=== PATIENT | female | born 1980 | race Caucasian/White ===

== ENCOUNTER 2016-11-21 16:33 | Emergency (ER) | payer MEDICAID ==
[2015-06-25 08:44] VITALS: BMI 43.5
[~2016-11-21 16:33] MED LIST: ULTRAM50 MG PO
== END 2016-11-21 19:11 | disposition home or self-care (01) ==
LOC: D.ER 16:33
DX: G43.909 Migraine, unspecified, not intractable, without status migrainosus (principal); K58.9 Irritable bowel syndrome, unspecified; F17.200 Nicotine dependence, unspecified, uncomplicated

== ENCOUNTER 2016-11-30 09:05 | Emergency (ER) | payer MEDICAID ==
[2015-06-25 08:44] VITALS: BMI 43.5
== END 2016-11-30 10:10 | disposition left against medical advice (07) ==
LOC: D.ER 09:05
DX: R51 Headache (principal); F17.200 Nicotine dependence, unspecified, uncomplicated

== ENCOUNTER 2017-01-01 09:40 | Emergency (ER) | payer MEDICAID ==
[2015-06-25 08:44] VITALS: BMI 43.5
== END 2017-01-01 13:23 | disposition home or self-care (01) ==
LOC: D.ER 09:40
DX: G43.909 Migraine, unspecified, not intractable, without status migrainosus (principal); R11.0 Nausea

== ENCOUNTER 2017-08-18 12:55 | Emergency (ER) | payer MEDICAID ==
[2015-06-25 08:44] VITALS: BMI 43.5
[2017-08-18 14:05] LABS: BASOPHILS 0.2 % (0-2); EOSINOPHILS 1.6 % (0-7); HEMATOCRIT 42.4 % (36.0-48.0); HEMOGLOBIN 13.7 g/dL (12-16); LYMPHOCYTES 21.8 % (15-50); MCH 27.5 pg (26.0-34.0); MCHC 32.3 g/dL (31.0-37.0); MEAN PLATELET VOLUME 11.4 fL (7.4-10.4); MONOCYTES 7.1 % (2-11); NEUTROPHILS 69.3 % (40-80); PLATELET COUNT 259 10x3/uL (130-400); RBC 4.99 10x6/uL (4.00-5.40); RDW 14.5 % (11.5-14.5); WBC 5.8 10x3/uL (4.8-10.8)
[2017-08-18 14:10] LABS: APPEARANCE CLEAR (CLEAR); BACTERIA MODERATE /hpf (NONE SEEN); BILIRUBIN NEGATIVE (NEGATIVE); COLOR YELLOW (YELLOW); GLUCOSE NEGATIVE (NEGATIVE); KETONE NEGATIVE (NEGATIVE); MUCUS >1+ /lpf (NONE SEEN); NITRITE NEGATIVE (NEGATIVE); PROTEIN NEGATIVE (NEGATIVE); RED CELLS - URINE RARE /hpf (0-5); UROBILINOGEN NORMAL (NORMAL); WHITE CELLS - URINE 0-5 /hpf (0-5)
[2017-08-18 14:19] LABS: UDS - AMPHET POSITIVE QUAL (NEGATIVE); UDS - BARB NEGATIVE QUAL (NEGATIVE); UDS - BENZO POSITIVE QUAL (NEGATIVE); UDS - COCAINE NEGATIVE QUAL (NEGATIVE); UDS - OPIATE POSITIVE QUAL (NEGATIVE); UDS - PCP NEGATIVE QUAL (NEGATIVE); UDS - THC NEGATIVE QUAL (NEGATIVE)
[2017-08-18 14:23] LABS: ALBUMIN 3.4 g/dL (3.4-5.0); ANION GAP 11.7 mmol/L (8-16); BILIRUBIN - TOTAL 0.27 mg/dL (0.2-1.3); CALCIUM 8.6 mg/dL (8.5-10.1); CREATININE - SERUM 0.9 mg/dL (0.6-1.3); POTASSIUM - SERUM 3.7 mmol/L (3.5-5.1); PROTEIN - SERUM 7.1 g/dL (6.4-8.2)
== END 2017-08-18 16:10 | disposition home or self-care (01) ==
LOC: D.ER 12:55
PROVIDERS: Emergency Medicine; Nurse Practitioner Family
DX: R10.11 Right upper quadrant pain (principal); R79.89 Other specified abnormal findings of blood chemistry; N39.0 Urinary tract infection, site not specified

== ENCOUNTER 2017-11-26 15:46 | Inpatient (IN) | payer MEDICAID ==
[~2017-11-26] VITALS: Ht 167.6 cm; Wt 127.3 kg
[2017-11-26 17:01] LABS: BASOPHILS 0.2 % (0-2); EOSINOPHILS 0.6 % (0-7); HEMATOCRIT 43.8 % (36.0-48.0); HEMOGLOBIN 14.1 g/dL (12-16); IMMATURE GRANULOCYTES 0.2 % (0-5); MCH 27.3 pg (26.0-34.0); MCHC 32.2 g/dL (31.0-37.0); MCV 84.9 fL (80.0-100.0); MEAN PLATELET VOLUME 10.9 fL (7.4-10.4); MONOCYTES 5.8 % (2-11); NEUTROPHILS 69.2 % (40-80); PLATELET COUNT 291 10x3/uL (130-400); RBC 5.16 10x6/uL (4.00-5.40); RDW 14.1 % (11.5-14.5); WBC 8.1 10x3/uL (4.8-10.8)
[2017-11-26 17:22] LABS: ALBUMIN 3.4 g/dL (3.4-5.0); ANION GAP 11.9 mmol/L (8-16); BILIRUBIN - TOTAL 0.11 mg/dL (0.2-1.3); CALCIUM 8.8 mg/dL (8.5-10.1); CARBON DIOXIDE 26.3 mmol/L (21.0-32.0); CREATININE - SERUM 0.9 mg/dL (0.6-1.3); POTASSIUM - SERUM 4.2 mmol/L (3.5-5.1); PROTEIN - SERUM 7.2 g/dL (6.4-8.2)
[2017-11-26 17:59] LABS: AMYLASE - SERUM 55 U/L (25-115); LIPASE 217 U/L (73-393)
[2017-11-26 22:30] LABS: APPEARANCE CLEAR (CLEAR); BILIRUBIN NEGATIVE (NEGATIVE); COLOR YELLOW (YELLOW); GLUCOSE NEGATIVE (NEGATIVE); KETONE NEGATIVE (NEGATIVE); NITRITE NEGATIVE (NEGATIVE); PROTEIN NEGATIVE (NEGATIVE); SPECIFIC GRAVITY 1.005 (1.005-1.020); UROBILINOGEN NORMAL (NORMAL)
[2017-11-26 22:36] LABS: UDS - AMPHET POSITIVE QUAL (NEGATIVE); UDS - BARB NEGATIVE QUAL (NEGATIVE); UDS - BENZO NEGATIVE QUAL (NEGATIVE); UDS - COCAINE NEGATIVE QUAL (NEGATIVE); UDS - OPIATE POSITIVE QUAL (NEGATIVE); UDS - PCP NEGATIVE QUAL (NEGATIVE); UDS - THC NEGATIVE QUAL (NEGATIVE)
[2017-11-26 22:37] LABS: HCG URINE NEGATIVE (NEGATIVE)
[2017-11-26] MEDS ORDERED: ACETAMINOPHEN325 MG PO (23:59)
[2017-11-27 00:52] LABS: HEMATOCRIT 40.6 % (36.0-48.0)
[2017-11-27 01:10] VITALS: BP 134/61; Ht 167.6 cm; Wt 127.3 kg
[2017-11-27 04:00] VITALS: BP 96/39
[2017-11-27 04:38] LABS: BASOPHILS 0.2 % (0-2); EOSINOPHILS 0.8 % (0-7); HEMATOCRIT 39.3 % (36.0-48.0); HEMOGLOBIN 12.6 g/dL (12-16); IMMATURE GRANULOCYTES 0.2 % (0-5); MCH 27.3 pg (26.0-34.0); MCHC 32.1 g/dL (31.0-37.0); MCV 85.1 fL (80.0-100.0); MEAN PLATELET VOLUME 11.4 fL (7.4-10.4); MONOCYTES 6.3 % (2-11); NEUTROPHILS 57.5 % (40-80); PLATELET COUNT 262 10x3/uL (130-400); RBC 4.62 10x6/uL (4.00-5.40); RDW 14.4 % (11.5-14.5)
[2017-11-27 04:39] LABS: WBC 5.9 10x3/uL (4.8-10.8)
[2017-11-27 04:58] LABS: ALKALINE PHOSPHATASE 83 U/L (46-116); ALT (SGPT) 35 U/L (10-68); AMYLASE - SERUM 40 U/L (25-115); CALC OSMOLALITY 280 mosm/kg (275-300); CALCIUM 8.4 mg/dL (8.5-10.1); CARBON DIOXIDE 25.2 mmol/L (21.0-32.0); CHLORIDE - SERUM 108 mmol/L (98-107); CREATININE - SERUM 0.8 mg/dL (0.6-1.3); GLUCOSE 88 mg/dL (74-106); LIPASE 94 U/L (73-393); POTASSIUM - SERUM 4.1 mmol/L (3.5-5.1); PROTEIN - SERUM 6.3 g/dL (6.4-8.2); SODIUM 141 mmol/L (136-145); UREA NITROGEN 14 mg/dL (7-18); eGFR NON AFRICAN AMERICAN 85 mL/min (90-120)
[2017-11-27 08:45] VITALS: BP 93/51
[2017-11-27 12:26] LABS: INR 0.97 (0.85-1.17); PROTIME 12.3 SECONDS (11.6-15.0)
[2017-11-27 12:37] VITALS: BP 97/73
[2017-11-27 17:51] VITALS: BP 117/52
[2017-11-27 20:00] VITALS: BP 121/46
[2017-11-28 04:00] VITALS: BP 101/49
[2017-11-28 05:18] LABS: BASOPHILS 0.2 % (0-2); HEMATOCRIT 37.5 % (36.0-48.0); HEMOGLOBIN 11.9 g/dL (12-16); IMMATURE GRANULOCYTES 0.2 % (0-5); LYMPHOCYTES 29.6 % (15-50); MCH 27.4 pg (26.0-34.0); MCHC 31.7 g/dL (31.0-37.0); MCV 86.4 fL (80.0-100.0); MEAN PLATELET VOLUME 11.7 fL (7.4-10.4); PLATELET COUNT 241 10x3/uL (130-400); RBC 4.34 10x6/uL (4.00-5.40); RDW 14.3 % (11.5-14.5); WBC 6.1 10x3/uL (4.8-10.8)
[2017-11-28 05:21] LABS: ALBUMIN 2.8 g/dL (3.4-5.0); ANION GAP 11.2 mmol/L (8-16); BILIRUBIN - TOTAL 0.1 mg/dL (0.2-1.3); CALCIUM 7.9 mg/dL (8.5-10.1); CARBON DIOXIDE 25.8 mmol/L (21.0-32.0); CREATININE - SERUM 0.9 mg/dL (0.6-1.3); PROTEIN - SERUM 5.9 g/dL (6.4-8.2)
[2017-11-28 09:29] VITALS: BP 134/44
[2017-11-28 14:18] VITALS: BP 119/44
[2017-11-28 14:20] LABS: HEPATITIS C ANTIBODY 0.1 (0.0-0.9)
[2017-11-29 13:17] LABS: ANA REFLEX - DIRECT Negative (Negative)
[2017-11-30 16:16] LABS: MITOCHONDRIAL ANTIBODY 6.4 Units (0.0-20.0); SMOOTH MUSCLE ABS (ACTIN) 7 Units (0-19)
== END 2017-11-28 15:37 | disposition home or self-care (01) | DRG 378 ==
LOC: D.ER 15:46 → OBSVTIME 21:32 → D.MS 21:32
PROVIDERS: Family Medicine; Internal Medicine Gastroenterology
DX: K62.5 Hemorrhage of anus and rectum (principal); F17.203 Nicotine dependence unspecified, with withdrawal; Z68.41 Body mass index [BMI] 40.0-44.9, adult; K57.90 Diverticulosis of intestine, part unspecified, without perforation or abscess without bleeding; F41.9 Anxiety disorder, unspecified; F90.9 Attention-deficit hyperactivity disorder, unspecified type; G89.29 Other chronic pain; K76.0 Fatty (change of) liver, not elsewhere classified; K59.00 Constipation, unspecified; E66.9 Obesity, unspecified

== ENCOUNTER 2017-12-02 11:17 | Emergency (ER) | payer MEDICAID ==
[2017-11-27 01:10] VITALS: BMI 45.3
[~2017-12-02 11:17] MED LIST changes: +ACETAMINOPHEN325 MG PO
[2017-12-02 12:05] LABS: BASOPHILS 0.1 % (0-2); EOSINOPHILS 0.6 % (0-7); HEMATOCRIT 46.6 % (36.0-48.0); HEMOGLOBIN 15.4 g/dL (12-16); IMMATURE GRANULOCYTES 0.1 % (0-5); LYMPHOCYTES 27.8 % (15-50); MCH 27.7 pg (26.0-34.0); MCV 83.8 fL (80.0-100.0); MONOCYTES 6.4 % (2-11); RBC 5.56 10x6/uL (4.00-5.40); RDW 14.2 % (11.5-14.5)
[2017-12-02 12:07] LABS: PLATELET COUNT 305 10x3/uL (130-400)
[2017-12-02 12:25] LABS: ALBUMIN 4.2 g/dL (3.4-5.0); ANION GAP 13.9 mmol/L (8-16); BILIRUBIN - TOTAL 0.18 mg/dL (0.2-1.3); CALCIUM 9.2 mg/dL (8.5-10.1); CARBON DIOXIDE 28.3 mmol/L (21.0-32.0); POTASSIUM - SERUM 4.2 mmol/L (3.5-5.1); PROTEIN - SERUM 7.8 g/dL (6.4-8.2)
[2017-12-02 13:59] LABS: APPEARANCE CLEAR (CLEAR); BILIRUBIN NEGATIVE (NEGATIVE); COLOR STRAW (YELLOW); GLUCOSE NEGATIVE (NEGATIVE); KETONE NEGATIVE (NEGATIVE); NITRITE NEGATIVE (NEGATIVE); PROTEIN NEGATIVE (NEGATIVE); UROBILINOGEN NORMAL (NORMAL)
== END 2017-12-02 15:37 | disposition home or self-care (01) ==
LOC: D.ER 11:17
PROVIDERS: Family Medicine
DX: R10.9 Unspecified abdominal pain (principal); F17.200 Nicotine dependence, unspecified, uncomplicated

== ENCOUNTER 2018-11-13 20:07 | Emergency (ER) | payer MEDICAID ==
[~2018-11-13] VITALS: Ht 167.6 cm; Wt 138.6 kg
[2018-11-13 20:11] VITALS: Ht 167.6 cm; Wt 138.6 kg
[2018-11-13] MEDS ORDERED: HYDROCODON-ACE1 EAC7 PO (20:11)
[2018-11-13 21:12] LABS: BASOPHILS 0.2 % (0-2); EOSINOPHILS 0 % (0-7); HEMATOCRIT 40.8 % (36.0-48.0); HEMOGLOBIN 13.3 g/dL (12-16); IMMATURE GRANULOCYTES 0.3 % (0-5); LYMPHOCYTES 12.7 % (15-50); MCH 27.2 pg (26.0-34.0); MCHC 32.6 g/dL (31.0-37.0); MCV 83.4 fL (80.0-100.0); MEAN PLATELET VOLUME 10.9 fL (7.4-10.4); NEUTROPHILS 82.8 % (40-80); PLATELET COUNT 318 10x3/uL (130-400); RBC 4.89 10x6/uL (4.00-5.40); RDW 14.3 % (11.5-14.5); WBC 9.7 10x3/uL (4.8-10.8)
[2018-11-13 21:27] LABS: ALBUMIN 3.5 g/dL (3.4-5.0); ANION GAP 13.7 mmol/L (8-16); BILIRUBIN - TOTAL 0.2 mg/dL (0.2-1.3); CALCIUM 8.8 mg/dL (8.5-10.1); CARBON DIOXIDE 26.5 mmol/L (21.0-32.0); POTASSIUM - SERUM 4.2 mmol/L (3.5-5.1); PROTEIN - SERUM 7.8 g/dL (6.4-8.2)
[2018-11-13 21:38] LABS: APPEARANCE CLEAR (CLEAR); BILIRUBIN NEGATIVE (NEGATIVE); COLOR YELLOW (YELLOW); GLUCOSE NEGATIVE (NEGATIVE); KETONE NEGATIVE (NEGATIVE); NITRITE NEGATIVE (NEGATIVE); PROTEIN NEGATIVE (NEGATIVE); UROBILINOGEN NORMAL (NORMAL)
[2018-11-13] MEDS ORDERED: CIPRO500 MG PO (23:30)
[2018-11-13 23:51] VITALS: BP 154/96
== END 2018-11-13 23:52 | disposition home or self-care (01) ==
LOC: D.ER 20:07
PROVIDERS: Emergency Medicine
DX: N39.0 Urinary tract infection, site not specified (principal); R30.0 Dysuria

== ENCOUNTER 2018-12-17 16:42 | Emergency (ER) | payer MEDICAID ==
[~2018-12-17] VITALS: Ht 165.1 cm; Wt 136.4 kg
[~2018-12-17 16:42] MED LIST changes: +CIPRO500 MG PO; +HYDROCODON-ACE1 EAC7 PO
[2018-12-17 16:46] VITALS: Ht 165.1 cm; Wt 136.4 kg
[2018-12-17 17:12] LABS: BASOPHILS 0.1 % (0-2); EOSINOPHILS 1.3 % (0-7); HEMATOCRIT 40.6 % (36.0-48.0); HEMOGLOBIN 13.3 g/dL (12-16); IMMATURE GRANULOCYTES 0.1 % (0-5); LYMPHOCYTES 30.4 % (15-50); MCH 27.2 pg (26.0-34.0); MCHC 32.8 g/dL (31.0-37.0); MEAN PLATELET VOLUME 10.8 fL (7.4-10.4); MONOCYTES 6.6 % (2-11); NEUTROPHILS 61.5 % (40-80); PLATELET COUNT 292 10x3/uL (130-400); RBC 4.89 10x6/uL (4.00-5.40); RDW 14.9 % (11.5-14.5); WBC 7.1 10x3/uL (4.8-10.8)
[2018-12-17 17:38] LABS: ALBUMIN 3.6 g/dL (3.4-5.0); ANION GAP 15.6 mmol/L (8-16); BILIRUBIN - TOTAL 0.24 mg/dL (0.2-1.3); CALCIUM 8.1 mg/dL (8.5-10.1); CARBON DIOXIDE 25.8 mmol/L (21.0-32.0); CREATININE - SERUM 0.9 mg/dL (0.6-1.3); POTASSIUM - SERUM 4.4 mmol/L (3.5-5.1); PROTEIN - SERUM 7.3 g/dL (6.4-8.2)
[2018-12-17 19:02] LABS: APPEARANCE CLEAR (CLEAR); BILIRUBIN NEGATIVE (NEGATIVE); COLOR YELLOW (YELLOW); GLUCOSE NEGATIVE (NEGATIVE); KETONE NEGATIVE (NEGATIVE); NITRITE NEGATIVE (NEGATIVE); PROTEIN NEGATIVE (NEGATIVE); SPECIFIC GRAVITY 1.015 (1.005-1.020); UROBILINOGEN NORMAL (NORMAL)
[2018-12-17] MEDS ORDERED: CARAFATE1 G PO (19:13)
[2018-12-17] MEDS ORDERED: PROTONIX40 MG PO (19:13)
[2018-12-17 19:33] VITALS: BP 111/61
== END 2018-12-17 19:34 | disposition home or self-care (01) ==
LOC: D.ER 16:42
PROVIDERS: Family Medicine
DX: R10.11 Right upper quadrant pain (principal); K29.70 Gastritis, unspecified, without bleeding; F17.200 Nicotine dependence, unspecified, uncomplicated

== ENCOUNTER 2019-01-01 15:08 | Emergency (ER) | payer MEDICAID ==
[~2019-01-01] VITALS: Ht 165.1 cm; Wt 146.8 kg
[~2019-01-01 15:08] MED LIST changes: +CARAFATE1 G PO; +PROTONIX40 MG PO
[2019-01-01 15:25] VITALS: BP 134/43; Ht 165.1 cm; Wt 146.8 kg
== END 2019-01-01 16:33 | disposition left against medical advice (07) ==
LOC: D.ER 15:08
DX: R50.9 Fever, unspecified (principal)

== ENCOUNTER → 2019-03-01 09:25 | Outpatient (CLI) | payer MEDICAID | END | disposition home or self-care (01) | LOC: D.LAB 09:25 | DX: K29.70 Gastritis, unspecified, without bleeding (principal); B96.81 Helicobacter pylori [H. pylori] as the cause of diseases classified elsewhere; R12 Heartburn; K58.9 Irritable bowel syndrome, unspecified ==

== ENCOUNTER 2019-06-22 20:07 | Emergency (ER) | payer MEDICAID ==
[~2019-06-22] VITALS: Ht 165.1 cm; Wt 148.2 kg
[2019-06-22 20:35] VITALS: Ht 165.1 cm; Wt 148.2 kg
[2019-06-22 20:53] LABS: BASOPHILS 0.1 % (0-2); EOSINOPHILS 1.4 % (0-7); HEMATOCRIT 40.5 % (36.0-48.0); HEMOGLOBIN 13.2 g/dL (12-16); IMMATURE GRANULOCYTES 0.4 % (0-5); LYMPHOCYTES 25.3 % (15-50); MCH 26.9 pg (26.0-34.0); MCHC 32.6 g/dL (31.0-37.0); MCV 82.7 fL (80.0-100.0); MEAN PLATELET VOLUME 10.5 fL (7.4-10.4); MONOCYTES 6.6 % (2-11); NEUTROPHILS 66.2 % (40-80); PLATELET COUNT 285 10x3/uL (130-400); RDW 15.4 % (11.5-14.5); WBC 7.7 10x3/uL (4.8-10.8)
[2019-06-22 21:11] LABS: ALBUMIN 3.4 g/dL (3.4-5.0); ANION GAP 13.6 mmol/L (8-16); BILIRUBIN - TOTAL 0.14 mg/dL (0.2-1.3); CALCIUM 8.9 mg/dL (8.5-10.1); CARBON DIOXIDE 25.4 mmol/L (21.0-32.0); CREATININE - SERUM 0.9 mg/dL (0.6-1.3); PROTEIN - SERUM 7.1 g/dL (6.4-8.2)
[2019-06-22 23:02] VITALS: BP 136/71
== END 2019-06-22 23:02 | disposition home or self-care (01) ==
LOC: D.ER 20:07
PROVIDERS: Family Medicine
DX: G44.209 Tension-type headache, unspecified, not intractable (principal)

== ENCOUNTER → 2019-06-24 15:37 | Outpatient (CLI) | payer MEDICAID ==
[2019-06-22 20:35] VITALS: BMI 54.3
== END | disposition home or self-care (01) ==
LOC: D.US 14:30
PROVIDERS: ATTEND Nurse Practitioner Family
DX: R60.0 Localized edema (principal)

== ENCOUNTER 2019-11-04 10:01 | Emergency (ER) | payer MEDICAID ==
[~2019-11-04] VITALS: Ht 165.1 cm; Wt 150.0 kg
[2019-11-04 10:13] VITALS: BP 146/108; Ht 165.1 cm; Wt 150.0 kg
[2019-11-04 10:55] LABS: ANION GAP 11.5 mmol/L (8-16); CALCIUM 8.7 mg/dL (8.5-10.1); CARBON DIOXIDE 29.6 mmol/L (21.0-32.0); POTASSIUM - SERUM 4.1 mmol/L (3.5-5.1)
[2019-11-04 10:57] LABS: BASOPHILS 0.1 % (0-2); EOSINOPHILS 1.2 % (0-7); HEMATOCRIT 41.7 % (36.0-48.0); HEMOGLOBIN 13.1 g/dL (12-16); IMMATURE GRANULOCYTES 0.1 % (0-5); LYMPHOCYTES 25.6 % (15-50); MCH 26.8 pg (26.0-34.0); MCHC 31.4 g/dL (31.0-37.0); MCV 85.5 fL (80.0-100.0); MEAN PLATELET VOLUME 10.4 fL (7.4-10.4); MONOCYTES 7.8 % (2-11); NEUTROPHILS 65.2 % (40-80); PLATELET COUNT 308 10x3/uL (130-400); RBC 4.88 10x6/uL (4.00-5.40); RDW 15.8 % (11.5-14.5); WBC 6.7 10x3/uL (4.8-10.8)
[2019-11-04 11:01] LABS: ALBUMIN 3.4 g/dL (3.4-5.0); BILIRUBIN - TOTAL 0.16 mg/dL (0.2-1.3); PROTEIN - SERUM 7.4 g/dL (6.4-8.2)
[2019-11-04 11:57] LABS: INR 0.95 (0.85-1.17); PROTIME 12.2 SECONDS (11.6-15.0)
[2019-11-04] MEDS ORDERED: PROTONIX40 MG PO (14:22)
[2019-11-04] MEDS ORDERED: BENTYL 20 MG TA20 MG PO (14:22)
== END 2019-11-04 14:40 | disposition home or self-care (01) ==
LOC: D.ER 10:01
PROVIDERS: Emergency Medicine
DX: K29.70 Gastritis, unspecified, without bleeding (principal); R11.0 Nausea; I10 Essential (primary) hypertension

== ENCOUNTER 2019-11-13 10:39 | Emergency (ER) | payer MEDICAID ==
[~2019-11-13] VITALS: Ht 165.1 cm; Wt 150.0 kg
[~2019-11-13 10:39] MED LIST changes: +BENTYL 20 MG TA20 MG PO
[2019-11-13 10:42] VITALS: Ht 165.1 cm; Wt 150.0 kg
[2019-11-13] MEDS ORDERED: PREDNISONE10 MG PO (11:52)
[2019-11-13] MEDS ORDERED: CYCLOBENZAPRINE10 MG PO (11:52)
[2019-11-13 12:22] VITALS: BP 132/89
== END 2019-11-13 12:22 | disposition home or self-care (01) ==
LOC: D.ER 10:39
DX: M25.50 Pain in unspecified joint (principal); S80.212A Abrasion, left knee, initial encounter; S80.211A Abrasion, right knee, initial encounter; W19.XXXA Unspecified fall, initial encounter; Y93.9 Activity, unspecified; Y92.9 Unspecified place or not applicable; I10 Essential (primary) hypertension; Z72.0 Tobacco use